=== PATIENT | female | born 1960 ===

== ENCOUNTER 2018-07-12 13:00 | Day surgery (SDC) | payer MEDICARE ==
[2018-07-12] MEDS ORDERED: Bupivacaine 0.25% 20 ML INJ IJ ONE (18:35)
[2018-07-12] MEDS ORDERED: ceFAZolin IV 1 gm in Dextrose 1 GM/50 ML BAG IVPB ONE (18:35)
[2018-07-12] MEDS ORDERED: Propofol 10 mg/ml Inj (20 ML) ONE (18:42)
[2018-07-12] MEDS ORDERED: Lactated Ringer's 1,000 ML IV ONE (19:10)
[2018-07-12] MEDS ORDERED: Oxycodone/Acetaminophen 5/325 mg Tab PO PRN (19:12)
[2018-07-12 19:54] VITALS: PULSE 59
[2018-07-12 20:55] VITALS: BP 146/74; RESP 10; TEMP 98.8; O2SAT 99
--- NOTE | 2018-07-13 07:08 | OP ---
PROCEDURE DATE: 07/12/2018 PREOPERATIVE DIAGNOSIS: Large left axillary mass. POSTOPERATIVE DIAGNOSIS: Large left axillary mass. PROCEDURE PERFORMED: Wide deep excision of 5 cm left axillary mass with advancement flap closure. SURGEON: Austen Li MD ANESTHESIA: General. BLOOD LOSS: 30 mL. POSTOP CONDITION: Stable. INDICATIONS FOR SURGERY: This is a 57-year-old female who presents with a history of a left axillary mass, who will now undergo wide deep excision. DESCRIPTION OF PROCEDURE: The patient was taken to the operating room. General anesthesia was administered. The left axilla was prepped and draped. A chain mill saw elliptical incision was made surrounding the 5 cm mass. It was deep into the fascial layer. Bleeding was controlled with the use of the Bovie. blood vessel was repaired. The wound was irrigated with saline. Generous tissue full-thickness tissue flaps were raised including fascia, along with counter incisions and a 32 sq cm adjacent tissue transfer closure was performed with multiple layers of Monocryl, subcuticular Monocryl, and skin clips. The patient tolerated the procedure well and returned to recovery room in stable condition. Austen Li MD
== END 2018-07-12 20:40 | disposition home or self-care (01) ==
LOC: C.SDS 13:00
PROVIDERS: ATTEND Surgery
DX: L72.0 Epidermal cyst (principal); L98.8 Other specified disorders of the skin and subcutaneous tissue
CPT/HCPCS: 11406; 88307; J1885; J2001; J2704; J3010; J7120